=== PATIENT | male | born 1980 | race Caucasian/White ===

== ENCOUNTER → 2017-01-16 | Outpatient (CLI) | payer OTHER ==
[~2017-01-16] MED LIST: LANTUS SOL100 UNIT/1 SQ; NOVOLOG 10100 UNITS1 INJ; NOVOLOG FL100 UNIT/1 INJ; PRAVACHOL20 MG PO
== END ==
LOC: KOH-I 12:16
DX: M54.5 Low back pain (principal); M51.26 Other intervertebral disc displacement, lumbar region
CPT/HCPCS: 72148